=== PATIENT | female | born 1955 | race Caucasian/White ===

== ENCOUNTER 2022-02-16 10:45 | Outpatient (RCR) | payer OTHER, SELFPAY ==
--- NOTE | 2022-01-20 08:39 | PTOPEVAL ---
PHYSICAL THERAPY INITIAL EVALUATION. Thank you for referring Diana Presley to [facility].? The patient is scheduled to be seen for therapy? 2x/week for 4 weeks. Please review, sign, date and return this plan of care ALEXIS. I agree with and certify that the following plan of care is medically necessary. Referring Physician Date Attending Provider: Andrew Brown APN *PT Outpatient Evaluation Start: 01/19/22 Evaluation Information Diagnosis L knee pain Onset ~1 month ago Subjective Information Pt states about a month she Query Text:As Reported By Patient/ was standing on a ladder with Family an overhead load and hyperextended her knee. She states she went to see Dr. Cifuentes and he did a cortisone injection and drained some fluid off the knee. She lives in a multi-level home with 3 steps to enter, an upstairs bedroom, and basement laundry. Pt states she does a [employer] exercise program 3x/wk. Pain Assessment Left Knee(s) Reported Pain Level 1 Pain Description Aching,Sharp Pain Frequency Acute,Intermittent Lowest Pain Intensity 1 Greatest Pain Intensity 8 Pain Aggravating Factors Exercise/Activity,Palpation, Stair Climbing,Walking,Weight Bearing/Standing Knee Range of Motion Left Knee Flexion Range of Motion - Active 76 Knee Flexion Range of Motion - Passive 80 Knee Extension Range of Motion - Active -20 Knee Range of Motion Comments knee flexion limited due to pain R knee 0-127 Lower Extremity Muscle Strength Testing Gross Lower Extremity Strength B hips 5/5 R knee 4+/5 L kne flexion 3/5 L knee ext 2+/5 L knee fair strength within available range, unable to achieve full ROM Palpation Assessment Palpation Tender just distal to the medial joint line Extremity Circumference Assessment Circumference Comments L, R mid calf: 36.5, 36cm knee joint line: 40.5, 37.5cm suprapatellar pole: 43.5, 40. 5cm Balance Assessment Time Up Go (TUG) Timed Up and Go Test (TUG) (Seconds) 17 Comments
--- NOTE | 2022-02-16 11:39 | PTOPEVAL ---
PHYSICAL THERAPY PROGRESS REPORT AND DISCHARGE SUMMARY. Thank you for referring Diana Presley to [facility].? The patient is scheduled to be discharged from therapy at this time. Please review, sign, date and return this plan of care ALEXIS. I agree with and certify that the following plan of care is medically necessary. Referring Physician Date Attending Provider: Andrew Brown APN Evaluation Information Diagnosis L knee pain Onset ~1 month ago Subjective Information Pt states her knee is feeling Query Text:As Reported By Patient/ a lot better. She states she Family still has a feeling of tightness and uncomfortable when she tries to bend it too much and when trying to kneel. She states she is still a bit fearful to kneel down while working in her garden. Pain Assessment Left Knee(s) Reported Pain Level 0 Greatest Pain Intensity 3 Lower Extremity Range of Motion Knee Range of Motion Left Knee Flexion Range of Motion - Active 110 Knee Flexion Range of Motion - Passive 117 Knee Extension Range of Motion - Active 0 Knee Range of Motion Comments knee flexion limited due to pain R knee 0-127 Lower Extremity Muscle Strength Testing Gross Lower Extremity Strength B hips 5/5 R knee 4+/5 L knee flexion/extension 4+/5 Palpation Assessment Palpation Tender just distal to the medial joint line, has a quater sized soft tissue knot Balance Assessment Timed Up and Go Test (TUG) (Seconds) 10 Assistive Devices None Comments Initially: 17s, L LE placed anterior to R LE during stand 02/16/22: 10s, with equal weight distribution 5 Time Sit to Stand 5 Time Sit to Stand Comments Initially: 24s, without the Query Text:Normative Data: If Greater use of UEs, L LE placed Than 15 Seconds, 74% Increase Risk for anterior to R LE during stand Recurrent Falls 02/16/22: 18s, without the use of UEs, and equal weight distribution Gait Assessment Other Gait Observations no notable deviations 2 Minute Walk Total Distance Walked (feet) 505 2 Minute Walk Gait Speed Score (feet/ 4.20 2 Minute Walk Test Comments Initially: 330ft (2.75ft/sec) 02/16/22: 505ft (420ft/sec) Stair Climbing Assessment Stair Climbing Assistive Devices Railings Number of Steps Climbed (Steps) 4 Number of Repet
== END 2022-02-20 10:22 | disposition home or self-care (01) ==
LOC: ANHPT 10:45
PROVIDERS: PCP Family Medicine Sports Medicine; Visit Provider Nurse Practitioner
DX: M25.562 Pain in left knee (principal)
CPT/HCPCS: 97110; 97112; 97140; 97161; 97530

== ENCOUNTER → 2023-09-27 10:50 | Outpatient (CLI) | payer OTHER, SELFPAY ==
--- NOTE | ~2023-09-27 | DEXA_ITS ---
Bone Density Report Name: KAREN SHANKS Age: 68 Sex: Female Ethnicity: White Date of : 1955 Indication: postmenopausal; screening for osteoporosis; height loss; prior fracture; Referring Provider: LINWOODMICHELLE Study: Bone densitometry was performed. Exam Date: September 27, 2023 Accession number: [id number] Bone Density: Region BMD T-score Z-score Classification AP Spine (L1-L4) 0.937 -1.0 1.1 Normal Femoral Neck (Left) 0.716 -1.2 0.6 Osteopenia Total Hip (Left) 0.922 -0.2 1.4 Normal Femoral Neck (Right) 0.698 -1.4 0.5 Osteopenia Total Hip (Right) 0.937 0.0 1.5 Normal Total Hip Mean 0.930 -0.1 1.5 Normal World Health Organization criteria for BMD impression classify patients as: Normal (T-score at or above -1.0), Osteopenia (T-score between -1.0 and -2.5), or Osteoporosis (T-score at or below -2.5). 10-year Fracture Risk(1): Major Osteoporotic Fracture 14% Hip Fracture 1.7% Reported Risk Factors: [place] (), Neck BMD=0.698, BMI=33.7, previous fracture (1) FRAX(R) Version 3.08. Fracture probability calculated for an untreated patient. Fracture probability may be lower if the patient has received treatment. Previous Exams: Region Exam Age BMD T-score BMD Change BMD Change Date g/cm2 vs Baseline vs Previous AP Spine(L1-L4) 09/27/2023 68 0.937 -1.0 0.014 -0.100* 01/17/2017 61 1.037 -0.1 0.114* 0.027* 10/12/2014 59 1.011 -0.3 0.088* 0.088* 08/29/2012 57 0.923 -1.1 Total Hip(Left) 09/27/2023 68 0.922 -0.2 0.002 -0.039* 01/17/2017 61 0.960 0.2 0.041* -0.009 10/12/2014 59 0.970 0.2 0.050* 0.050* 08/29/2012 57 0.919 -0.2 Total Hip(Right) 09/27/2023 68 0.937 0.0 -0.012 -0.062* 01/17/2017 61 0.998 0.5 0.050* 0.008 10/12/2014 59 0.990 0.4 0.042* 0.042* 08/29/2012 57 0.949 0.1 *Denotes significance at 95% confidence level, LSC for AP Spine = 0.022 g/cm2, LSC for Total Hip = 0.027 g/cm2 Clinical Information Provided by Patient: Has had a low trauma fracture Has used the following medications: Vitamin D, Calcium Patient maximum height was 63.0 Menopause Age: 48 Drinks caffeinated beverages Onset of menses at age 12 Number of children 2 Impression: The patient has low bone mass, based on the
== END ==
PROVIDERS: PCP Family Medicine; Visit Provider Family Medicine
DX: M85.88 Other specified disorders of bone density and structure, other site (principal); Z78.0 Asymptomatic menopausal state
CPT/HCPCS: 77080

== ENCOUNTER 2024-03-19 08:30 | Outpatient (NON) | payer OTHER, SELFPAY | END 2024-03-19 08:31 | disposition home or self-care (01) | PROVIDERS: PCP Student in an Organized Health Care Education/Training Program; Visit Provider Internal Medicine Gastroenterology | DX: R19.5 Other fecal abnormalities (principal) | CPT/HCPCS: 88305 ==

== ENCOUNTER 2024-03-19 08:57 | Day surgery (SDC) | payer OTHER, SELFPAY ==
[2024-03-02 13:41] VITALS: BMI 32.5
--- NOTE | 2024-03-19 07:24 | P.PNAN_ITS ---
Anes - Initial Pre Proc Eval Procedure: Operation Date: 03/19/24 11:30 Proposed Procedures p Diagnostic Colonoscopy - Madhu Julian MD Date/Time: 03/19/24 07:24 Surgeon: Madhu Julian MD Pre Op Diagnosis: Positive Cologuard test Patient Data Age: 68 Gender: F Height: 1.63 m Weight: 82 kg Allergies Allergy/AdvReac Type Severity Reaction Status Date / Time No Known Allergies Allergy Verified 03/19/24 10:10 Home Medications Medication Instructions Recorded Confirmed Type B-complex with vitamin C 1 tablet PO DAILY 01/04/22 03/19/24 History biotin 10,000 mcg capsule 10,000 mcg PO DIRECTED 01/04/22 03/19/24 History ergocalciferol (vitamin D2) 50,000 50,000 unit PO DIRECTED 01/04/22 03/19/24 History unit tablet duloxetine 30 mg capsule,delayed 30 mg PO DAILY #30 caps 02/25/24 03/19/24 Rx release amlodipine 10 mg tablet 10 mg PO DAILY 03/10/24 03/19/24 History meloxicam 7.5 mg tablet 7.5 mg PO DIRECTED 03/10/24 03/19/24 History rosuvastatin 5 mg tablet 5 mg PO DAILY 03/10/24 03/19/24 History Patient hx anesthesia problems: none Family hx anesthesia problems: none Results Review: All pre-operative results and documents have been reviewed as part of the pre- operative evaluation. [facility] Past Medical History Medical History (Updated 03/19/24 @ 10:46 by Madhu Julian MD) Ankle fracture, right Arthritis of knee, degenerative Arthritis of right hip Breast CA Closed fracture of right distal fibula Hyperlipidemia Hypertension Lumbar radiculopathy, acute Neuritis of right ankle Surgical History Surgical History H/O: section 1978 History of breast cancer [address] Dr. Uyen Etienne History of cholecystectomy History of hand surgery Family History Family History Father Family history of prostate cancer Heart disease Mother Cerebrovascular accident Sibling Heart disease Grandparent Heart disease Family history of prostate cancer Social History Social History Smoking status: Never smoker Alcohol intake: current Alcohol use details: wine Substance use: never Substance use type: does not use Living arrangements: with family Occupation/Education: retired Gender identity (if verbalized by the patient): Female Anes - Eval Final PreProcedure Day of Procedure 03/19/24 07:24 Patient weight: obese Heart: regular rate and rhythm Lungs: clear to auscultation Airway: Mallampati scale class III Neurological: alert and oriented Last oral intake: >/= 8 hours ASA classification: III Emergent: no Anesthetic plan: proceed Anesthesia type and monitoring: general GIVS and standard monitoring Results Review: All pre-operative results and documents have been reviewed as part of the pre- operative evaluation. Informed Consent: The patient's anesthetic plan and its attendant risks and benefits were discussed with the patient/family/POA. Questions were solicited and answers provided to the satisfaction of the patient/family/POA.
[2024-03-19 10:15] VITALS: BP 144/78; PULSE 76; RESP 17; TEMP 36.8; O2SAT 96
[2024-03-19] MEDS: LACTATED RINGERS 1,000 ML 150 ML IV CONT (10:21)
--- NOTE | 2024-03-19 10:44 | PM.HPGS ---
History of Present Illness History of Present Illness Consent: Risks, benefits, and alternatives have been discussed and questions answered. Patient agrees to proceed with procedure. Chief complaint: Positive Cologuard test Narrative: Diana Presley is a 68 year old female presents for screening colonoscopy. Patient recently had a Cologuard test that was positive. Patient reports his current weight appetite and bowel movements are normal. She denies abdominal pain. Patient has had no bleeding. Family history is noncontributory. Review of Systems Review of Systems: All systems reviewed & are unremarkable except as noted in HPI and below PMFSH Past Medical History Medical History (Updated 03/19/24 @ 10:46 by Madhu Julian MD) Ankle fracture, right Arthritis of knee, degenerative Arthritis of right hip Breast CA Closed fracture of right distal fibula Hyperlipidemia Hypertension Lumbar radiculopathy, acute Neuritis of right ankle Surgical History Surgical History H/O: section 1978 History of breast cancer 2017 Dr. Uyen Etienne History of cholecystectomy History of hand surgery Family History Family History Father Family history of prostate cancer Heart disease Mother Cerebrovascular accident Sibling Heart disease Grandparent Heart disease Family history of prostate cancer Social History Social History Smoking status: Never smoker Alcohol intake: current Alcohol use details: wine Substance use: never Substance use type: does not use Living arrangements: with family Occupation/Education: retired Gender identity (if verbalized by the patient): Female Meds Home Medications and Allergies Home Medications Medication Instructions Recorded Confirmed Type B-complex with vitamin C 1 tablet PO DAILY 01/04/22 03/19/24 History biotin 10,000 mcg capsule 10,000 mcg PO DIRECTED 01/04/22 03/19/24 History ergocalciferol (vitamin D2) 50,000 50,000 unit PO DIRECTED 01/04/22 03/19/24 History unit tablet duloxetine 30 mg capsule,delayed 30 mg PO DAILY #30 caps 02/25/24 03/19/24 Rx release amlodipine 10 mg tablet 10 mg PO DAILY 03/10/24 03/19/24 History meloxicam 7.5 mg tablet 7.5 mg PO DIRECTED 03/10/24 03/19/24 History rosuvastatin 5 mg tablet 5 mg PO DAILY 03/10/24 03/19/24 History Allergies Allergy/AdvReac Type Severity Reaction Status Date / Time No Known Allergies Allergy Verified 03/19/24 10:10 Vital Signs Vital Signs - 24 hr 03/19/24 10:15 Temperature 98.2 F Pulse Rate 76 Respiratory Rate 17 Blood Pressure 144/78 H Pulse Oximetry 96 Oxygen Delivery Room Air Exam Narrative: Physical exam reveals patient to be alert. Vital signs stable. HEENT exam is unremarkable. Patient is anicteric. Lungs are clear to auscultation and to percussion heart is without murmur or extra sounds. Abdomen bowel sounds are present soft nontender with no organomegaly. Digital external rectal exam is normal. Assessment and Plan Assessment and plan (1) Positive colorectal cancer screening using Cologuard test: Code(s): R19.5 - Other fecal abnormalities Status: Acute Assessment and Plan: Cologuard test was positive. For this reason screening colonoscopy to be performed today.
[2024-03-19 11:41] VITALS: BP 170/63; PULSE 94; RESP 18; O2SAT 95
[2024-03-19 11:51] VITALS: BP 126/60; PULSE 82; RESP 18; O2SAT 95
[2024-03-19 12:01] VITALS: BP 132/64; PULSE 80; RESP 16; O2SAT 97
--- NOTE | 2024-03-19 12:19 | WPDANESPN ---
Anes - Prog Note Post-Op Date/Time: 03/19/24 12:19 Cardiovascular status: normal Respiratory status: normal Airway patency: baseline Mental status: baseline Post-Op hydration status: normal Vital Signs: Last Vital Signs Temp 36.8 C 03/19/24 10:15 Pulse 80 03/19/24 12:01 Resp 16 03/19/24 12:01 BP 132/64 03/19/24 12:01 Pulse Ox 97 03/19/24 12:01 O2 Del Method Room Air 03/19/24 12:01 Pain Score (VAS): 0 I/O: Intake & Output 03/18/24 03/19/24 03/19/24 23:59 07:59 15:59 Intake Total 900 Balance 900 Post-procedural complaints: none Patient Feedback: Patient satisfied with anesthetic care. Other Findings: Patient vital signs back to baseline. Patient denies nausea and vomiting. Patient's pain under control. Patient OK for discharge.
== END 2024-03-19 12:20 | disposition home or self-care (01) ==
PROVIDERS: PCP Student in an Organized Health Care Education/Training Program; Visit Provider Internal Medicine Gastroenterology
PROC: 0DJD8ZZ Inspection of Lower Intestinal Tract, Via Natural or Artificial Opening Endoscopic (ICD-10-PCS; CPT 45378; principal; 2024-03-19 11:30)
DX: R19.5 Other fecal abnormalities (principal); D12.2 Benign neoplasm of ascending colon; K57.30 Diverticulosis of large intestine without perforation or abscess without bleeding; K64.8 Other hemorrhoids
CPT/HCPCS: 45385

== ENCOUNTER 2024-06-30 07:05 | Day surgery (SDC) | payer OTHER, SELFPAY ==
--- NOTE | ~2024-06-30 | XR_ITS ---
BRAULIO INTRAOPERATIVE FLUOROSCOPY: CLINICAL HISTORY: 69 years old Female; RIGHT SI JT INJ PROCEDURE COMMENTS: Limited intraoperative fluoroscopy of the right SI joint (with the patient prone) was performed. CUMULATIVE DOSE: 2.5 mGy FLUOROSCOPY TIME: 9.5 seconds FINDINGS/IMPRESSION: Intraoperative fluoroscopic views demonstrate contrast introducer needle along the SI joint, in good position. Please refer to operative note for further details. Reviewed, dictated and finalized at location A.
--- NOTE | 2024-06-30 05:27 | WPDHPUPDATE1 ---
History and Physical Update Update Date/Time: 06/30/24 05:27 History and Physical has been reviewed, including an updated exam of the patient. There are NO changes in the patient's condition. Risks, benefits, and alternatives have been discussed and questions answered. Patient agrees to proceed with procedure.
--- NOTE | 2024-06-30 05:28 | W.PM.PROC2 ---
Procedure Note - Detailed Date of Procedure 06/30/24 Pre-op Diagnosis Sacroiliitis Post-op Diagnosis Same Procedure Performed Right Sacroiliac Joint Steroid Injection under Fluoroscopic Guidance and with Contrast Control. Surgeon Luis Santacruz MD Agricultural Engineer None Anesthesia Local Description of Procedure INFORMED CONSENT: Risks, benefits and alternatives to the procedure were discussed in detail with the patient who expressed explicit understanding and consent to proceed. Patient was informed verbally and in written form regarding the risks associated with the procedure including the low risk of serious infection, bleeding/bruising, allergic reaction, nerve or organ injury, paralysis, procedural site pain or discomfort, worsening pain and/or mobility, failure to treat and/or disfigurement. The patient expressed explicit understanding and consent to proceed. All materials required for the procedure were available prior to procedure start. Site and side were marked prior to procedure and confirmed in the presence of the patient. PROCEDURE IN DETAIL: The patient was brought to the procedural suite and placed in the prone position. Patient was made comfortable with use of pillows under the head/chest, hips and ankles. Skin overlying the injection site on the affected side(s) was prepared broadly with ChloraPrep applicator and draped in a sterile manner. Aseptic technique was used throughout. The right SI joint was identified in the AP view and contralateral oblique angulation with caudal tilt was utilized to optimize visualization of the inferior and medial joint line representing the posterior portion of the joint. Local anesthesia was established by infiltration with approximately 5 mL of 2% lidocaine via a 1-1/2 inch 27-gauge needle. A 22-gauge 3.5 inch Quincke spinal needle was advanced until the needle entered the inferior third of the joint space approximately 1cm cephalad from its most inferior point. In the AP view, 0.5 mL of Omnipaque 300 contrast medium was injected after negative aspiration for CSF, blood or other bodily fluid, showing appropriate intra-articular spread of contrast without evidence of intravascular, perineural or intrathecal placement. A 1.5 mL solution containing 6 mg of betamethasone in 0.5% PF bupivacaine was injected after repeat negative aspiration. Appropriate spread of the injectate was confirmed with washout of previous injected contrast. No parasthesias were elicited. Needle was removed completely intact without difficulty. Images were saved and documented in the patient chart. Patient's skin was cleansed and sterile bandage applied. The patient tolerated the procedure well. The patient was transported to the recovery area in stable condition where they were observed for an appropriate amount of time prior to discharge, without evidence of complication. The patient was instructed to avoid excessive activity for the next 48 hours, including climbing and frequent use of stairs. Showers only for 48 hours. They were instructed not to drive or operate heavy machinery for 24 hours. They are to monitor for severe headaches, fevers, chills, night sweats, erythema/swelling at the site or any other signs of infection, bleeding/bruising, bowel or bladder changes as well as new pain, weakness or numbness in the upper or lower extremity. Should they notice these changes, they are instructed to call our office immediately or report directly to the nearest Emergency Department if no answer or if after posted office hours. COMPLICATIONS: None COMMENTS: None CONTRAST WASTED: 29mL Omnipaque 300. Complications No immediate complications Condition Stable Disposition Same day [facility] Billing Surgery - Charge Forward: Surgery Billing
[2024-06-30 07:20] VITALS: BP 133/65; PULSE 60; RESP 16; TEMP 36.8; O2SAT 97
[2024-06-30 08:06] VITALS: BP 149/67; PULSE 63; RESP 14; O2SAT 97
[2024-06-30] MEDS: BETAMETHASONE SODIUM PHOSPHATE PF INJ 6 MG/ML VIAL INFILTRATE (08:11)
[2024-06-30 08:13] VITALS: BP 133/64; PULSE 58; RESP 16; O2SAT 98
[2024-06-30] MEDS: LIDOCAINE HCL 1% PF INJ 5 ML VIAL 2 ML XX (08:13)
[2024-06-30] MEDS: BUPivacaine HCL 0.5% 10 ML AMP INFILTRATE (08:14)
== END 2024-06-30 08:29 | disposition home or self-care (01) ==
PROVIDERS: PCP Family Medicine; Visit Provider Anesthesiology Pain Medicine
PROC: (CPT G0260; principal; 2024-06-30 08:15)
DX: M46.1 Sacroiliitis, not elsewhere classified (principal)
CPT/HCPCS: G0260; 27096; 99199